=== PATIENT | male | born 1980 | race Caucasian/White ===

== ENCOUNTER 2018-11-27 15:14 | Emergency (ER) | payer OTHER ==
[2018-11-27 15:30] VITALS: RESP 20
--- NOTE | 2018-11-27 16:17 | ED ---
ENT HPI - General Chief complaint: ENT Stated complaint: Fall-dizzy Time Seen by Provider: 11/27/18 15:47 Source: patient Mode of arrival: ambulatory Limitations: no limitations - History of Present Illness Initial comments: Patient is a 38-year-old male presenting to the emergency department with a chief complaint of neck pain. Patient reports about a week ago he fell forward and injured his chin and throat. Patient reports ever since the incident he has developed increased pain in the throat with a recent sore throat and trouble swallowing. Patient also reports mild changes in voice. Patient also reports the pain is traveling to the left side of his head. Patient denies any nausea or vomiting, fevers or chills. Patient denies taking medication to alleviate the symptoms. Patient denies drooling or swelling. - Related Data Home Medications Medication Instructions Recorded Confirmed Multivitamins, Thera [Multivitamin 1 tab PO DAILY 11/27/18 11/27/18 (formulary)] Allergies Allergy/AdvReac Type Severity Reaction Status Date / Time No Known Allergies Allergy Verified 11/27/18 15:43 Review of Systems ROS Statement: Those systems with pertinent positive or pertinent negative responses have been documented in the HPI. ROS Other: All systems not noted in ROS Statement are negative. Past Medical History Past Medical History: No Reported History History of Any Multi-Drug Resistant Organisms: None Reported Past Surgical History: No Surgical Hx Reported Past Psychological History: No Psychological Hx Reported Smoking Status: Current every day smoker Past Alcohol Use History: Occasional Past Drug Use History: Marijuana General Exam Limitations: no limitations General appearance: alert, in no apparent distress Head exam: Present: normocephalic, normal inspection. Absent: atraumatic (Small abrasion on the chin) Eye exam: Present: normal appearance, PERRL, EOMI Pupils: Present: normal accommodation ENT exam: Present: normal exam, normal oropharynx (Uvula midline. No tonsillar enlargement or erythema.), mucous membranes moist, TM's normal bilaterally (Tympanic membranes are unremarkable bilaterally.), normal external ear exam (No pain with traction on the year.) Neck exam: Present: normal inspection, tenderness (Left-sided neck tenderness.), full ROM, lymphadenopathy (Left side submandibular) Respiratory exam: Present: normal lung sounds bilaterally Cardiovascular Exam: Present: regular rate, normal rhythm, normal heart sounds Extremities exam: Present: normal inspection, full ROM Back exam: Present: normal inspection, full ROM Neurological exam: Present: alert, oriented X3 Psychiatric exam: Present: normal affect, normal mood Skin exam: Present: warm, intact, normal color Course Vital Signs 11/27/18 11/27/18 11/27/18 15:27 15:30 17:59 Temperature 98.8 F 98.1 F 98.5 F Pulse Rate 94 76 80 Respiratory 20 20 20 Rate Blood Pressure 143/87 131/91 113/93 O2 Sat by Pulse 98 97 97 Oximetry Medical Decision Making - Medical Decision Making Patient is a 38-year-old male presenting to the emergency department with a chief complaint of neck pain. Patient fell forward on his throat approximately one week ago and has since developed some pain along the left SCM. Patient does have some tenderness on palpation there. Patient also reports slight changes in his voice along with a sore throat. Patient also reports poor dentition and states the pain could be referred due to cavities. Patient has no fevers or chills. Patient denies any shortness of breath or dyspnea. Physical examinatio n is unremarkable for any oral pathologies. Patient does have a left submandibular lymph node on physical examination. Soft tissue CT of the neck is indicative of bilateral sinus syndrome and also a 1.5 cm submandibular lymph node. Otherwise rest of imaging is unremarkable. I suspect the patient to be spritzing symptoms due to the contusion in the throat. I also suspect the changes to her voice to be a result of that. Have low suspicion for a peritonsillar abscess or retropharyngeal abscess. Strict return parameters were thoroughly discussed with patient is understanding and agreeable. Patient advised to follow with ENT. Case discussed with physician. Disposition Clinical Impression: Contusion of throat, initial encounter, Sore throat Disposition: HOME SELF-CARE Condition: Stable Instructions (If sedation given, give patient instructions): Earache (ED) Additional Instructions: Please take prescribed medication as directed. Please return to emergency department if symptoms worsen. Please follow up with ENT. Is patient prescribed a controlled substance at d/c from ED?: No Referrals: None,Stated [Primary Care Provider] - 1-2 days Grayson Mosley DO [Doctor of Osteopathic Medicine] - 1-2 days Time of Disposition: 17:39
--- NOTE | 2018-11-27 16:56 | CT ---
EXAMINATION TYPE: CT soft tissue neck w con DATE OF EXAM: 11/27/2018 4:32 PM COMPARISON: None HISTORY: Fall on steps, edge of step hitting him in the throat. Left ear and jaw pain. Dizziness. CT DLP: 249.1 mGycm Automated exposure control for dose reduction was used. CONTRAST: CT scan of the neck is performed following with IV Contrast, patient injected with 100 mL of Isovue 3 00. Axial images are obtained, coronal and sagittal reformatted images are reviewed. FINDINGS: There is normal branching pattern of the great vessels on the aortic arch. Thyroid gland is fairly sy mmetric. There is normal contrast opacification of carotid arteries and jugular veins. There is contr ast opacification of the vertebral arteries. The parotid glands are symmetric. Submandibular salivary glands are symmetric. There is 1.5 cm left side submandibular lymph node. There are a few anterior t riangle cervical lymph nodes up to 1 cm. The epiglottis appears normal. Trachea appears normal. Preve rtebral soft tissues are not enlarged. The tongue appears normal. There is no pathologic fluid collec tion. There is no sign of a hematoma. Cervical spine appears intact. Mandible is intact. Zygomatic ar ches appear normal. There is bilateral mucus retention cyst in the maxillary sinuses. There is no jose dence of orbital mass. IMPRESSION: Bilateral maxillary sinus mucus retention cyst. There are few nonspecific cervical lymph nodes. No evidence of traumatic injury.
[2018-11-27] MEDS ORDERED: predniSONE 50 MG TAB PO STA (17:35)
[2018-11-27 18:01] VITALS: BP 113/93; PULSE 80; TEMP 98.5
== END 2018-11-27 18:07 | disposition home or self-care (01) ==
LOC: EC 15:14
DX: S10.0XXA Contusion of throat, initial encounter (principal); J02.9 Acute pharyngitis, unspecified; F17.200 Nicotine dependence, unspecified, uncomplicated; W19.XXXA Unspecified fall, initial encounter
CPT/HCPCS: 70491; 99283; J7512; Q9967

== ENCOUNTER 2023-11-06 03:03 | Emergency (ER) | payer OTHER ==
[2023-11-06 03:09] VITALS: RESP 18
--- NOTE | 2023-11-06 03:24 | ED ---
Wound/Laceration HPI - General Chief Complaint: Wound/Laceration Stated Complaint: Foot Injury Time Seen by Provider: 11/06/23 03:23 Source: patient, RN notes reviewed Mode of arrival: ambulatory Limitations: no limitations - History of Present Illness Initial Comments: 43-year-old male presented to the ER with a chief complaint of right fifth digit laceration. Patient states he was consuming whiskey this evening and went to show his neighbor his training sword. He states he accidentally dropped the stored on his right fifth digit causing a laceration. He states this occurred around 2:30 AM. No blood thinner use. Tetanus up-to-date. Denies any limited range of motion. Denies paresthesias. No other injuries or complaints. - Related Data Home Medications Medication Instructions Recorded Confirmed Multivitamins, Thera [Multivitamin 1 tab PO DAILY 11/27/18 11/27/18 (formulary)] Previous Rx's Medication Instructions Recorded Cephalexin [Keflex] 500 mg PO Q6HR #40 cap 11/06/23 Allergies Allergy/AdvReac Type Severity Reaction Status Date / Time paliperidone [From Invega] AdvReac Rash/Hives Verified 11/06/23 03:09 Review of Systems ROS Statement: Those systems with pertinent positive or pertinent negative responses have been documented in the HPI. ROS Other: All systems not noted in ROS Statement are negative. Past Medical History Past Medical History: No Reported History History of Any Multi-Drug Resistant Organisms: None Reported Past Surgical History: No Surgical Hx Reported Past Psychological History: No Psychological Hx Reported Past Alcohol Use History: Occasional Past Drug Use History: Marijuana General Exam Limitations: no limitations General appearance: alert, in no apparent distress, appears intoxicated Respiratory exam: Present: normal lung sounds bilaterally. Absent: respiratory distress, wheezes, rales, rhonchi, stridor Cardiovascular Exam: Present: regular rate, normal rhythm, normal heart sounds. Absent: systolic murmur, diastolic murmur, rubs, gallop, clicks Extremities exam: Present: normal inspection, full ROM, normal capillary refill. Absent: tenderness, pedal edema, joint swelling, calf tenderness Skin exam: Present: warm, dry, intact, normal color, other (2 cm laceration to the dorsal aspect of right fifth digit. Minimal active bleeding. Patient has full active range of motion. 2+ right dorsalis pedis and posterior tibialis pulses. Sensation intact.). Absent: rash Course Vital Signs 11/06/23 03:06 Temperature 97 F L Pulse Rate 98 Respiratory 18 Rate Blood Pressure 135/90 O2 Sat by Pulse 96 Oximetry Procedures - Laceration Laceration #1 Consent Obtained: verbal consent Indication: laceration Site: foot Size (cm): 2 Description: linear Depth: simple, single layer, involves tendon Anesthetic Used: lidocaine 1%, without epi Anesthesia Technique: nerve block Amount (mls): 5 Pre-repair: wound explored, irrigated extensively, deep structures intact Type of Sutures: nylon Size of Sutures: 4-0 Number of Sutures: 4 Technique: simple, interrupted Patient Tolerated Procedure: well Medical Decision Making - Medical Decision Making Was pt. sent in by a medical professional or institution ([facility] Navarro, LEARNING TECHNOLOGIES SPECIALIST, urgent care, hospital, or care home...) When possible be specific @ -No Did you speak to anyone other than the patient for history (EMS, parent, family, police, friend...)? What history was obtained from this source @ -No Did you review nursing and triage notes (agree or disagree)? Why? @ -I reviewed and agree with nursing and triage notes Were old charts reviewed (outside hosp., previous admission, EMS record, old EKG, old radiological studies, urgent care reports/EKG's, care home records)? Report findings @ -No old charts were reviewed Differential Diagnosis (chest pain, altered mental status, abdominal pain women, abdominal pain men, vaginal bleeding, weakness, fever, dyspnea, syncope, heada albina, dizziness, GI bleed, back pain, seizure, CVA, palpatations, mental health, musculoskeletal)? @ -Laceration, abrasion, contusion, avulsion, foreign body this list is not meant to be all-inclusive EKG interpreted by me (3pts min.). @ -None done X-rays interpreted by me (1pt min.). @ -None done CT interpreted by me (1pt min.). @ -None done U/S interpreted by me (1pt. min.). @ -None done What testing was considered but not performed or refused? (CT, X-rays, U/S, labs)? Why? @ -Imaging recommended patient refused What meds were considered but not given or refused? Why? @ -None Did you discuss the management of the patient with other professionals (professionals i.e. , PA, LEARNING TECHNOLOGIES SPECIALIST, lab, RT, psych nurse, manager social responsibility, crop and soil technician, teacher, special police officer, keycase assembler)? Give summary @ -No Was smoking cessation discussed for >3mins.? @ -No Was critical care preformed (if so, how long)? @ -No Were there social determinants of health that impacted care today? How? (Homelessness, low income, unemployed, alcoholism, drug addiction, transportation, low edu. Level, literacy, decrease access to med. care, snf, rehab)? @ -No Was there de-escalation of care discussed even if they declined (Discuss DNR or withdrawal of care, Hospice)? DNR status @ -No What co-morbidities impacted this encounter? (DM, HTN, Smoking, COPD, CAD, Cancer, CVA, ARF, Chemo, Hep., AIDS, mental health diagnosis, sleep apnea, morbid obesity)? @ -None Was patient admitted / discharged? Hospital course, mention meds given and route, prescriptions, significant lab abnormalities, going to OR and other pertinent info. @ -Discharge. 43-year-old male presented the ER with a chief complaint of laceration. History and physical exam completed. Vitals within normal limits. Exam remarkable for a 2 cm laceration to the dorsal aspect of the right fifth digit. Patient has full active range of motion. Minimal active bleeding. Right lower extremity neurovascular intact. Brisk cap refill. Imaging recommen ded, patient refused. Tetanus is up-to-date. Wound closed, see note above. Bacitracin placed. Due to mechanism of injury and location patient will be started on Keflex for infection prophylaxis. First dose in the ER. Return parameters discussed. Suture care discussed. I advised suture removal in 10 to 14 days. Patient discharged in stable condition. Patient verbally expressed understanding agree with care plan. Case discussed with ED attending, Dr. Rg. Undiagnosed new problem with uncertain prognosis? @ -No Drug Therapy requiring intensive monitoring for toxicity (Heparin, Nitro, Insulin, Cardizem)? @ -No Were any procedures done? @ -Yes Diagnosis/symptom? @ -Laceration Acute, or Chronic, or Acute on Chronic? @ -Acute Uncomplicated (without systemic symptoms) or Complicated (systemic symptoms)? @ -Uncomplicated Side effects of treatment? @ -No Exacerbation, Progression, or Severe Exacerbation? @ -No Poses a threat to life or bodily function? How? (Chest pain, [place], [place], pneumonia, PE, COPD, DKA, ARF, appy, cholecystitis, CVA, Diverticulitis, Homicidal, Suicidal, threat to staff... and all critical care pts) @ -No Disposition Clinical Impression: Laceration Disposition: HOME SELF-CARE Condition: Stable Instructions (If sedation given, give patient instructions): Care For Your Stitches (ED) Additional Instructions: Have sutures removed in 10 to 14 days. Complete full course of Keflex. Return to the ER for any new or worsening concerns. Prescriptions: Cephalexin [Keflex] 500 mg PO Q6HR #40 cap Is patient prescribed a controlled substance at d/c from ED?: No Referrals: None,Stated [Primary Care Provider] - 1-2 days Time of Disposition: 03:54
[2023-11-06] MEDS: BACITRACIN OINT 1 EACH PACKET TOPICAL ONE (03:29)
[2023-11-06] MEDS: LIDOCAINE 1% INJ 10MG/ML (20 ML MDV) SQ ONE (03:29)
[2023-11-06] MEDS: CEPHALEXIN 500 MG CAP PO STA (04:04)
[2023-11-06 04:11] VITALS: BP 128/81; PULSE 79; TEMP 97.8
== END 2023-11-06 04:10 | disposition home or self-care (01) ==
LOC: EC 03:03
CPT/HCPCS: 12001; 99282